=== PATIENT | female | born 1945 | race Caucasian/White ===

== ENCOUNTER 2017-03-12 10:42 | Emergency (ER) | payer OTHER ==
[~2017-03-12] VITALS: Ht 167.6 cm; Wt 101.1 kg
[~2017-03-12 10:42] MED LIST: ACTONEL35 MG PO; AMBIEN5 M1 PO; ASPIR 8181 M1 PO; Actonel PO; CALCIUM + D 601 EACH PO; CYANOCOBALAM1000 MCG PO; FISH OIL SOFTG1 EACH PO; IMODIUM A-D2 MG PO; LIDODERM 5% P1 PATCH TD; MESTINON180 MG PO; MICARDIS40 MG PO; PERCOCET 5/31 TABLET PO; Percocet 5/325,Endoc PO; Protonix PO; RESTORIL15 MG PO; VITAMIN E400 UNIT PO; [UNRECOGNIZED DRUG - OTHER] MC
[2017-03-12 11:29] LABS: EOSINOPHIL (%) 1.1 % (0-5); EOSINOPHIL COUNT 0.1 K/uL (0-0.3); HEMATOCRIT 44.2 % (36.0-46.0); IMMATURE GRANULOCYTE (%) 0.5 % (0.0-0.7); IMMATURE GRANULOCYTE COUNT 0.1 K/uL; INSTRUMENT ABS NEUTROPHIL CT 7.2 K/uL; LYMPHOCYTE COUNT 1.6 K/uL (1.0-2.8); MCH 32.7 PG (29.0-34.0); MCHC 33.5 G/DL (30.0-36.0); MCV 97.8 FL (83-99); MEAN PLAT.VOLUME 10.2 uM^3 (9.5-12.4); MONOCYTE (%) 7.8 % (3-12); MONOCYTE COUNT 0.8 K/uL (0-0.8); NEUTROPHIL (%) 73.8 % (45-76); NEUTROPHIL COUNT 7.2 K/uL (1.8-6.4); PLATELET COUNT 295 K/uL (156-360); RBC DIS.WIDTH-CV 13.2 % (11.8-14.6); RED BLOOD COUNT 4.52 M/uL (3.80-5.20); WHITE BLOOD COUNT 9.8 K/uL (4.1-10.2)
[2017-03-12 11:37] LABS: CHLORIDE 105 mEq/L (99-109); POTASSIUM 4.6 mEq/L (3.7-5.4); SODIUM 138 mEq/L (136-147)
[2017-03-12 11:40] LABS: GLUCOSE 115 mg/dL (70-99)
[2017-03-12 11:41] LABS: ANION GAP 10 MEQ/L (2-14); TOTAL BILIRUBIN 0.9 mg/dL (0.0-1.0)
[2017-03-12 11:43] LABS: ALKALINE PHOSPHATASE 69 IU/L (3-129); GFR ESTIMATE (CALCULATED) > 59 mL/min/
[2017-03-12] MEDS ORDERED: ATARAX,VISTARIL50 MG PO (11:44)
[2017-03-12 11:45] LABS: UREA NITROGEN (BUN) 14 mg/dL (9-23)
[2017-03-12 11:46] LABS: CREATINE KINASE 47 IU/L (1-294)
[2017-03-12] MEDS ORDERED: VALIUM2 MG PO (12:35)
[2017-03-12] MEDS ORDERED: NAPROXEN500 MG PO (12:35)
[2017-03-12 12:45] VITALS: BP 150/76
== END 2017-03-12 12:46 | disposition home or self-care (01) ==
LOC: EXP 10:42 → EME 10:42 → EXP 12:46
PROVIDERS: Physician Assistant
DX: M43.6 Torticollis (principal); F32.9 Major depressive disorder, single episode, unspecified; I10 Essential (primary) hypertension; G70.00 Myasthenia gravis without (acute) exacerbation; C85.99 Non-Hodgkin lymphoma, unspecified, extranodal and solid organ sites; M25.511 Pain in right shoulder
CPT/HCPCS: 72040; 80053; 82550; 85025; 99281; 99284; J1885

== ENCOUNTER 2018-03-15 09:21 | Emergency (ER) | payer OTHER ==
[~2018-03-15] VITALS: Ht 162.6 cm; Wt 96.8 kg
[~2018-03-15 09:21] MED LIST changes: +ATARAX,VISTARIL50 MG PO; +NAPROXEN500 MG PO; +VALIUM2 MG PO
[2018-03-15 09:56] LABS: BASOPHIL (%) 0.7 % (0-1); EOSINOPHIL (%) 3.5 % (0-5); EOSINOPHIL COUNT 0.2 K/uL (0-0.3); HEMATOCRIT 42.7 % (36.0-46.0); HEMOGLOBIN 14.4 G/DL (11.9-15.5); IMMATURE GRANULOCYTE (%) 0.2 % (0.0-0.7); LYMPHOCYTE (%) 37.4 % (15-42); LYMPHOCYTE COUNT 2.2 K/uL (1.0-2.8); MCH 32.9 PG (29.0-34.0); MCHC 33.7 G/DL (30.0-36.0); MCV 97.5 FL (83-99); MONOCYTE (%) 6.7 % (3-12); MONOCYTE COUNT 0.4 K/uL (0-0.8); NEUTROPHIL (%) 51.5 % (45-76); NEUTROPHIL COUNT 3.1 K/uL (1.8-6.4); PLATELET COUNT 299 K/uL (156-360); RBC DIS.WIDTH-SD 46.7 % (39-53); RED BLOOD COUNT 4.38 M/uL (3.80-5.20)
[2018-03-15 10:04] LABS: INTER. NORMALIZED RATIO 1.1
[2018-03-15 10:06] LABS: PTT 28.8 SEC (25-37)
[2018-03-15 10:11] LABS: CHLORIDE 106 mEq/L (99-109); POTASSIUM 4.4 mEq/L (3.7-5.4); SODIUM 139 mEq/L (136-147)
[2018-03-15 10:12] LABS: GLUCOSE 145 mg/dL (70-99)
[2018-03-15 10:16] LABS: CREATININE 0.8 mg/dL (0.6-1.3); GFR ESTIMATE (CALCULATED) > 59 mL/min/
[2018-03-15 10:17] LABS: UREA NITROGEN (BUN) 16 mg/dL (9-23)
[2018-03-15 10:23] LABS: TROP-I INTERPRETATION NEGATIVE; TROPONIN-I < 0.01 ng/mL (0.0-0.30)
[2018-03-15] MEDS ORDERED: PERCOCET 5/31 TABLET PO (11:52)
[2018-03-15 12:23] VITALS: BP 133/67
== END 2018-03-15 12:23 | disposition home or self-care (01) ==
LOC: EME 09:21
PROVIDERS: Emergency Medicine
DX: R07.89 Other chest pain (principal); I49.1 Atrial premature depolarization; R94.31 Abnormal electrocardiogram [ECG] [EKG]; I25.10 Atherosclerotic heart disease of native coronary artery without angina pectoris; E04.2 Nontoxic multinodular goiter; M51.35 Other intervertebral disc degeneration, thoracolumbar region; I10 Essential (primary) hypertension; G70.00 Myasthenia gravis without (acute) exacerbation; F32.9 Major depressive disorder, single episode, unspecified; Z87.891 Personal history of nicotine dependence; Z85.72 Personal history of non-Hodgkin lymphomas; Z90.49 Acquired absence of other specified parts of digestive tract; Z90.710 Acquired absence of both cervix and uterus; Z88.5 Allergy status to narcotic agent; Z88.8 Allergy status to other drugs, medicaments and biological substances
CPT/HCPCS: 71045; 71275; 80048; 83880; 84484; 85025; 85379; 85610; 85730; 93005; 99281; 99285; J1885

== ENCOUNTER → 2018-05-08 | Outpatient (CLI) | payer OTHER | END | disposition home or self-care (01) | LOC: NUC 07:39 | DX: E04.2 Nontoxic multinodular goiter (principal) | CPT/HCPCS: 78014; 78999; A9516 ==